=== PATIENT | female | born 1960 | race African-American/Black ===

== ENCOUNTER 2023-03-06 12:12 | Inpatient (IN) | payer OTHER ==
[~2023-03-06] VITALS: Ht 165.1 cm; Wt 57.7 kg
[~2023-03-06 12:12] MED LIST: ALBUTEROL0.83 MG/ML IH; CALCITRIOL PO; LOPID 600M600 MG/TAB PO; NORVASC 5MG5 MG/TAB PO; SODIUM BICARBO650 MG PO; TENORMIN 5050 MG/TAB PO; TESSALON P100 MG/CAP PO; ZYLOPRIM 300MG300 MG PO
[2023-03-06] MEDS ORDERED: TOPROL XL100 MG PO (12:46)
[2023-03-06] MEDS ORDERED: KEPPRA 500MG500 MG PO (12:46)
[2023-03-06] MEDS ORDERED: LASIX 40MG TABL40 MG PO (12:46)
[2023-03-06] MEDS ORDERED: MIRALAX PA17 GM/Dose PO (12:47)
[2023-03-06] MEDS ORDERED: PROTONIX 40MG T40 MG PO (12:47)
[2023-03-06] MEDS ORDERED: SENNA-LAX8.6 MG PO (12:48)
[2023-03-06] MEDS ORDERED: ANORO IH (12:49)
--- NOTE | 2023-03-06 12:59 | NUR ---
New patient arrived to unit from [facility]. She was admitted there for concern for seizure activity. Pt is a/o x4, pleasant. Pt is weak in all extremities but is able to bear weight and pivot transfer w/ CGA w/ person assistance. Swelling to right wrist noted with tenderness. Dr. Bolden notified and was in room to examine pt. Moisture related skin breakdown noted to perineum - pt reports this area is painful. Waffle overlay present on mattress. Air cushion placed into recliner. Pressure dressing noted to RUE - pt reports that an IV was removed from this site today and that it "gushed blood". Will assess this site later in shift. Overall skin is dry and flaky. Orientation provided to unit.
[2023-03-06 13:13] VITALS: BP 133/84; PULSE 77; TEMP 98.4
[2023-03-06 13:18] VITALS: BP_SYST 133
[2023-03-06 17:09] VITALS: BP 150/92; PULSE 90; TEMP 98
[2023-03-06 17:41] VITALS: BP_SYST 150
--- NOTE | 2023-03-06 20:20 | NUR ---
PT HAVING SEVERE ABD PAIN/CRAMPING. PT RELATED DOESNT REMEBER LAST BM. DENIES IT WAS YESTERDAY PER REPORT. GAVE SENOKOT, COLACE AND DULCOLAX SUPP.
--- NOTE | 2023-03-06 21:30 | NUR ---
ASSISTED PT TO BSC. HAD HARD SMALL STOOL. PT C/O SEVERE ABD CRAMPING. MOANING. BACK TO BED. WARM PAD TO ABD. ABD REMAINS SOFT BS PRESENT.
--- NOTE | 2023-03-06 22:34 | NUR ---
NOTIFIED ANALY CROWE OF PT C/O OF UNRELIEVED SEVERE ABD CRAMPING. SEE NEW ORDERS.
--- NOTE | 2023-03-06 23:30 | NUR ---
RADIOLOGY HERE FOR KUB. GAVE ENRIQUETA EARLIER. SEE MAR.
[2023-03-07 00:09] VITALS: BP 135/79; PULSE 96; TEMP 98.5
--- NOTE | 2023-03-07 00:28 | NUR ---
PT HAS SETTLED SOME. NOT MOANING. DOZING.
--- NOTE | 2023-03-07 01:17 | NUR ---
PT AWAKE. STILL HAVING ABD CRAMPING. GAVE 2 MYLICON CHEWABLES.
[2023-03-07 05:53] VITALS: BP 141/81; PULSE 96; TEMP 98.9
[2023-03-07 07:00] VITALS: BP_SYST 141
[2023-03-07 07:39] LABS: BASO % 0.3 % (0.0-2.0); EOS % 0.6 % (0.0-4.0); GRAN # 5.2 K/mm3 (1.4-6.5); GRAN % 79.4 % (42.2-75.2); LYMPH # 0.9 K/mm3 (1.2-3.4); LYMPH % 14.2 % (20.0-51.0); MEAN CELL VOLUME 87 fl (80.0-100.0); MEAN CORPUSCULAR HGB CONC 32 g/dl (33.0-37.0); MEAN PLATELET VOLUME 11.8 fl (7.4-10.4); MONO # 0.3 K/mm3 (0.1-0.6); MONO % 4.7 % (1.7-9.3); PLATELET COUNT 149 K/mm3 (130-400); RED BLOOD COUNT 3.11 M/mm3 (4.10-5.30); REDCELL DISTRIBUTION WIDTH-CV 18.9 % (11.5-14.5)
[2023-03-07 07:54] LABS: CALCIUM 7.7 mg/dL (8.4-10.2); CREATININE, serum 4.13 mg/dL (0.57-1.11); POTASSIUM 4.9 mmol/L (3.5-4.5); URIC ACID 9.3 mg/dL (2.6-6.0)
[2023-03-07 07:55] LABS: HEMATOCRIT 27.1 % (37.0-47.0); HEMOGLOBIN 8.6 g/dl (12.5-16.0); MEAN CORPUSCULAR HEMOGLOBIN 28 pg (27-31)
--- NOTE | 2023-03-07 09:50 | NUR ---
PATIENT ALERT AND ORIENTED X4. VSS. PATIENT HERE FOR DEBILITY. PATIENT REPORTS ABDOMINAL PAIN, RATING 5/10. PATIENT HAS HAD 2 LOOSE LARGE STOOLS THIS AM. DESITIN APPLIED TO COCCYX/SHANTEL AREA. SEE ASSESSMENT FOR SKIN ISSUES. PATIENT DENIES ANY FURTHER NEEDS. PATIENT IN CHAIR, WAITING ON THERAPY THIS AM. CALL LIGHT IN REACH, CHAIR ALARM ACTIVATED.
[2023-03-07 15:09] LABS: RETIC # 0.09 M/mm3 (0.02-0.16); RETIC % 2.9 % (0.5-3.52)
--- NOTE | 2023-03-07 15:31 | NUR ---
SW met with patient to complete intake. Patient reports that she lives at home with her brother Gus and her son Praveen. The home is a two story home with a basement located in [place]. Patient reports that there are a total of three steps to get into the home with no handrail. She utilizes the gutters that run down the side of the home as "handrails". At baseline she uses a FWW to assist with mobility but verbalizes that she would like to obtain a rollator walker with a seat. Patient states that she is independent with her ADL's and IADL's with the exception of her laundry. Laundry room is located in the basement with a full flight of steps, that she voices she doesn't feel safe going down. Her brother will assist in washing her clothing but she is able to fold it. Her bathroom is a tub/shower combo with grab bars installed and she denies having a shower bench. Toilet is standard height and she denies having a toilet riser. Denies any dentures,hearing aids or glasses. Denies any current tobacco, alcohol or drug use. Patient reports that she is no longer going to [facility] for PCP care and only utilizes for her care. [facility]. She owns her own car, but was told not to drive due to her seizures. Her main support is her brother Gus as her children are "unreliable". Patient does not have a DPOA- established and does not wish to create one at this time.
[2023-03-07 17:37] VITALS: BP 145/80; PULSE 78; TEMP 99.3
[2023-03-07 19:18] LABS: COLLECTION METHOD CLEAN CATCH
--- NOTE | 2023-03-07 19:20 | NUR ---
RECEIVED CHANGE OF SHIFT REPORT FROM DAY SHIFT RN. PATIENT RESTING IN BED DURING REPORT, CALL LIGHT IN PLACE, EXIT ALARM ON. CASANOVA CATH TO DD DRAINING WITH DD BAG ON ICE FOR 24 HOUR URINE COLLECTION.
[2023-03-07 19:37] LABS: PH 7.5 (5.0-8.5); URINE APPEARANCE Cloudy (CLEAR/HAZY); URINE COLOR Yellow (YELLOW)
[2023-03-07 19:38] LABS: URINE BLOOD TRACE-INTACT (NEGATIVE); URINE GLUCOSE Negative (NEGATIVE); URINE KETONE 1+ (NEGATIVE); URINE NITRATE Negative (NEGATIVE); URINE PROTEIN(semi-quant) 2+ (NEGATIVE); URINE UROBILINOGEN 0.2 E.U/dL (0.2-1.0)
[2023-03-07 19:39] LABS: MUCOUS Present (NOT PRESENT); SQUAMOUS EPITHELIAL 0-2 /hpf (0-10); URINE BACTERIA Rare /hpf (NONE SEEN)
[2023-03-07 22:19] VITALS: BP 143/73; PULSE 91; TEMP 98.7
--- NOTE | 2023-03-07 22:19 | NUR ---
REPORTS DIZZINESS, VS TAKEN, DENIED CHEST PAIN/NAUSEA/SOA/CHILLING. FSBS TAKEN, RESULTED IN 78. PATIENT AGREED TO EAT KAYLIN ICE CREAM FOR SNACK AT THIS TIME.
--- NOTE | 2023-03-07 23:25 | NUR ---
REPORTS DIZZINESS HAS SUBSIDED. STILL HAVING LOOSE STOOLS, WITH COMPLAINTS OF STOMACH CRAMPING AT TIME.
[2023-03-08 05:26] VITALS: BP 145/77; PULSE 94; TEMP 98.1
--- NOTE | 2023-03-08 05:41 | NUR ---
REPORTS SHE "FEELS BETTER THAT BEFORE". CASANOVA TO DD CONTINUES, 24 HOUR URINE COLLECTION CONTINUES WITH CASANOVA DD BAG ON ICE CONTINOUSLY THROUGH THE NIGHT.
[2023-03-08 07:00] VITALS: BP_SYST 145
--- NOTE | 2023-03-08 07:27 | NUR ---
CHANGE OF SHIFT REPORT GIVEN TO DAY SHIFT RNCONI.
--- NOTE | 2023-03-08 08:53 | NUR ---
Shift report received from the night nurseZakia RN.
--- NOTE | 2023-03-08 10:00 | NUR ---
Has lack of transportation kept you from medical appts, meetings, work, or from getting things needed for daily living? NO How often do you feel lonely or isolated from those around you? NEVER Over the past 5 days, how much of the time has pain made it hard for you to sleep? FREQUENTLY Over the past 5 days, how often have you limited your participation in therapy due to pain? OCCASIONALLY Over the past 5 days, how often have you limited your day-to-day activities because of pain? OCCASIONALLY Have you had 2 or more falls in the past year or any fall with an injury? YES Did you have major surgery during the 100 days prior to admission? NO
--- NOTE | 2023-03-08 10:53 | NUR ---
Patient laying in bed alert and oriented. Patient states she feeling good this am and had a large bowel movement. Patient denies of abdominal cramps. INT on right wrist intact. Patient remains on 2L fluid restrictions.
--- NOTE | 2023-03-08 11:30 | NUR ---
Received lab report for patient's blood glucose of 70 after physical therapy section this am. Patient asymptomatic, grape juice offered and lunch. Rechecked patient blood sugar with a reading of 127. No needs at this time .
[2023-03-08 11:34] LABS: CALCIUM 7.4 mg/dL (8.4-10.2); CREATININE, serum 4.14 mg/dL (0.57-1.11); POTASSIUM 4.4 mmol/L (3.5-4.5)
[2023-03-08 12:13] LABS: BASO % 0.4 % (0.0-2.0); EOS # 0.1 K/mm3 (0.0-0.7); EOS % 0.9 % (0.0-4.0); GRAN # 5.9 K/mm3 (1.4-6.5); GRAN % 78.3 % (42.2-75.2); LYMPH # 1.1 K/mm3 (1.2-3.4); LYMPH % 14.8 % (20.0-51.0); MEAN CELL VOLUME 85 fl (80.0-100.0); MEAN CORPUSCULAR HGB CONC 33 g/dl (33.0-37.0); MONO # 0.4 K/mm3 (0.1-0.6); MONO % 4.8 % (1.7-9.3); PLATELET COUNT 134 K/mm3 (130-400)
[2023-03-08 12:14] LABS: HEMOGLOBIN 9.5 g/dl (12.5-16.0); MEAN CORPUSCULAR HEMOGLOBIN 28 pg (27-31)
[2023-03-08 16:52] VITALS: BP 124/72; PULSE 91; TEMP 98.4
--- NOTE | 2023-03-08 19:00 | NUR ---
RECEIVED CHANGE OF SHIFT REPORT FROM DAY SHIFT RN.
--- NOTE | 2023-03-08 19:03 | NUR ---
24 hours urine collection completed and sent to lab.
[2023-03-08 19:21] LABS: CREATININE, serum 4.08 mg/dL (0.57-1.11)
[2023-03-09 05:37] VITALS: BP 153/86; PULSE 97; TEMP 98.4
[2023-03-09 07:14] VITALS: BP_SYST 153
--- NOTE | 2023-03-09 07:23 | NUR ---
CHANGE OF SHIFT REPORT GIVEN TO DAY SHIFT DREW IRWIN.
--- NOTE | 2023-03-09 14:05 | NUR ---
Admission QIM scores were reviewed by the team. Code of 2 chosen for toilet hygiene was determined by team discussion to be the most usual performance before interventions for this patient during the assessment period. Code of 2 chosen for toilet transfer was determined by team discussion to be the most usual performance before interventions for this patient during the assessment period. Code of 3 chosen for putting on/taking off footwear was determined by team discussion to be the most usual performance before interventions for this patient during the assessment period. Code of 4 chosen for rolling left to right was determined by team discussion to be the most usual performance before interventions for this patient during the assessment period. Code of 4 chosen for sit to lying was determined by team discussion to be the most usual performance before interventions for this patient during the assessment period. Code of 3 chosen for lying to sitting on side of bed was determined by team discussion to be the most usual performance before interventions for this patient during the assessment period. Code of 2 chosen for sit to stand was determined by team discussion to be the most usual performance for this patient during the discharge assessment period. Code of 2 chosen for chair/bed to chair transfer was determined by team discussion to be the most usual performance before interventions for this patient during the assessment period. Code of 3 chosen for walk 50 feet w/ 2 turns was determined by team discussion to be the most usual performance before interventions for this patient during the assessment period. Code of 88 chosen for walk 10 feet on uneven surface was determined by team discussion to be the most usual performance for this patient during the discharge assessment period.--Barb Graham,
--- NOTE | 2023-03-09 16:38 | NUR ---
Engagement Lead met with Patient at bedside to follow-up on treatment progress. Patient reports to be confused, stating that she was not confused until this day. Patient reports to be oriented to person, place, and time without being prompted. Patient states that she does not know what she is confused about. When discussing the potential to feel overwhelmed, Patient reports to be overwhelmed and continues to repeat that she is confused. SW notified IPR nurse of Patient reported confusion.
[2023-03-09 17:23] VITALS: BP 147/90; PULSE 93; TEMP 98.8
[2023-03-09 18:30] VITALS: BP_SYST 147
--- NOTE | 2023-03-09 18:48 | NUR ---
patient complaining of swollen lips and being itchy. regional construction manager nights called. waiting for orders to be put in.
--- NOTE | 2023-03-09 21:00 | NUR ---
PT RESTING IN BED. HOB ELEVATED. HAS KPAD ACROSS ABD. DENIES STOMACH PROBLEMS TONIGHT. GAVE ONE TIME DOSE PEPCID 20MG ORDERED. GAVE BENADRYL 25MG PO FOR ITCHING. NOT SURE IF MED REACTION. HAS OCCASIONAL LOOSE COUGH W/O SPUTUM. TAKES MUCOUS RELIEF. TYLENOL GIVEN FOR GENERALIZED ACHES. CALL LIGHT IN REACH. BED ALARM SET.
--- NOTE | 2023-03-09 21:05 | NUR ---
CONTINUED SEIZURE PRECATIONS.
[2023-03-10 05:20] VITALS: BP 141/90; PULSE 86; TEMP 97.9
[2023-03-10 07:13] VITALS: BP_SYST 141
--- NOTE | 2023-03-10 07:13 | NUR ---
Shift report received from retail shift leader RN.
--- NOTE | 2023-03-10 10:39 | NUR ---
Initial visit; Patient thanked for looking in on her. Preschool Disability Teacher explained that every time she has attempted to visit there were people with her. Today, finally she was available. This brought a smile and a thank you for prayer and encouragement. will continue to visit Bev who is glad to be back from [place], closer to home.
--- NOTE | 2023-03-10 10:56 | NUR ---
Pt was agreeable to attending Group Therapy this morning and then changed her mind. Pt currently resting in left side lying position in bed. Pt is tearful and states that she is "upset that the therapy girl game 20 minutes late" and "asked if I planned on going to Group". Pt stated this was upsetting because she is unable to take herself to Group Therapy. Pt wondered if this was becausea of her race. Pt was assured that everyone is welcome to attend Group Therapy and that the therapist may have just been running late for a different reason. Pt stating that she "just wants to go home".
--- NOTE | 2023-03-10 15:27 | NUR ---
Pt sitting up in bed visiting with her brother. Pt noted to be short of breath while speaking. SpO2 97% RA. Pt denies shortness of breath, chest pain or tightness, difficulty breathing. SBA provided as pt ambulated to the bathroom w/ FWW and then back to bed. Pt denies other needs. Call light is in her reach. Bed alarm is on.
[2023-03-10 17:27] VITALS: BP 158/102; PULSE 94; TEMP 98.4
[2023-03-10 18:16] VITALS: BP 148/98; PULSE 88
[2023-03-10 19:00] VITALS: BP_SYST 146
[2023-03-10 19:20] VITALS: BP 146/98; PULSE 95
--- NOTE | 2023-03-10 19:24 | NUR ---
NOTIFIED ANALY BECK OF ELEVATED BP'S. WILL CONTINUE TO MONITOR.
--- NOTE | 2023-03-10 20:00 | NUR ---
PT RESTING IN BED. ALITTLE DEPRESSED. PROVIDED EMOTIONAL SUPPORT. RECHECK B/P EARLIER 146/98. H/A IMPROVED. PT REPORTS JUST HAD A BAD DAY. TRYING TO SETTLE HERSELF DOWN. SEE SKIN ASSESSMENT AND CARES GIVEN. MELATONIN GIVEN. CALL LIGHT IN REACH. BED ALARM SET.
[2023-03-11 05:23] VITALS: BP 153/93; PULSE 93; TEMP 97.5
[2023-03-11 06:55] VITALS: BP_SYST 153
--- NOTE | 2023-03-11 06:56 | NUR ---
Shift report received from night shift manager RN. SBA provided as pt stood from bed and ambulated to bathroom w/ FWW. SBA for clothing mgmt and hygiene and ambulation back to bed. SBA provided for pt to position from sitting to lying in bed. She denies pain/discomfort. Denies chest pain, abd. pain, shortness of breath or other needs. Call light in reach. Bed alarm on.
[2023-03-11 07:19] VITALS: BP 151/95
--- NOTE | 2023-03-11 07:23 | NUR ---
Pt reporting a headache at 7/10 on pain scale. Abd pain w/o nausea also reported. Tylenol and Simethicone given per PRN order. Pt denies visual changes. No slurred speech. Headache is felt over frontal area. BP 151/95. Will continue to monitor.
--- NOTE | 2023-03-11 10:28 | NUR ---
Pt sleeping supine. Head Loader is at the bedside. Call light is in her reach. Be alarm is on.
--- NOTE | 2023-03-11 11:14 | NUR ---
SBA provided as pt stood from bed and ambulated to the bathroom using a FWW. She reports her stomach upset and headache have resolved. Pt back in bed to continue resting. She denies general pain/discomfort. Denies nausea or other needs. Call light is in her reach. Bed alarm is on.
--- NOTE | 2023-03-11 12:14 | NUR ---
Pt resting in bed after eating lunch. Pt ate >50% of her lunch independently. She continues to report that her headache and upset stomach have resolved. She denies other needs. Call light is in her reach. Bed alarm is on.
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
--- NOTE | 2023-03-11 12:40 | NUR ---
Pt reporting that her stomach is feeling upset again. SBA provided as pt ambulated to the bathroom with a FWW. Pt had a large, loose stool. No nausea. No GUY. Will continue to monitor. Call light is in her reach. Bed alarm is on.
[2023-03-11 18:13] VITALS: BP 160/98; PULSE 100; TEMP 98.4
[2023-03-11 18:20] VITALS: BP 144/98; PULSE 98
[2023-03-11 18:30] VITALS: BP_SYST 144
--- NOTE | 2023-03-11 21:00 | NUR ---
PT RESTING IN BED. NO DISTRESS AT THIS TIME. STILL FEELS GASSY BUT NO PAIN OR NAUSEA. SEE MAR FOR MYLICON GIVEN. TYLENOL GIVEN FOR GEN ACHINESS. DC'D INT TO RT F/A. CALL LIGHT IN REACH. BED ALARM SET.
[2023-03-12 05:19] VITALS: BP 147/92; PULSE 97; TEMP 97.7
[2023-03-12 07:00] VITALS: BP_SYST 147
[2023-03-12 07:25] LABS: BASO % 0.1 % (0.0-2.0); EOS % 0.1 % (0.0-4.0); GRAN # 5.8 K/mm3 (1.4-6.5); GRAN % 68.9 % (42.2-75.2); LYMPH % 23.6 % (20.0-51.0); MEAN CELL VOLUME 88 fl (80.0-100.0); MEAN CORPUSCULAR HGB CONC 31 g/dl (33.0-37.0); MEAN PLATELET VOLUME 13.2 fl (7.4-10.4); MONO # 0.5 K/mm3 (0.1-0.6); PLATELET COUNT 163 K/mm3 (130-400); RED BLOOD COUNT 3.11 M/mm3 (4.10-5.30); REDCELL DISTRIBUTION WIDTH-CV 19.7 % (11.5-14.5)
[2023-03-12 07:34] LABS: HEMATOCRIT 27.2 % (37.0-47.0); HEMOGLOBIN 8.5 g/dl (12.5-16.0); MEAN CORPUSCULAR HEMOGLOBIN 27 pg (27-31)
[2023-03-12 07:38] LABS: CALCIUM 8.7 mg/dL (8.4-10.2); CREATININE, serum 4.49 mg/dL (0.57-1.11); MAGNESIUM 1.7 mg/dL (1.6-2.6); PHOSPHOROUS 5.6 mg/dL (2.3-4.7); POTASSIUM 4.3 mmol/L (3.5-4.5)
--- NOTE | 2023-03-12 12:22 | NUR ---
NEPHROLOGY AT BEDSIDE, SEE NOTES
--- NOTE | 2023-03-12 15:14 | NUR ---
SW met with the patient to follow up and introduce oneself. The patient was resting and states that she had just been napping. She shares that she is hopeful to go home soon. The IPR Team would like to set up a patient/family meeting. SW discussed this with the patient. The patient reports that she does not want her children involved or called. She states that it has been her brother, Gus (ph#[phone], that has been helping her and coming up to visit her. She asks that SW contact her brother about the meeting. She had no other questions or concerns for SW. SW attempted to contact the patient's brother, Gus. SW left him a voicemail.
[2023-03-12 15:32] VITALS: BP 148/93; PULSE 86; TEMP 97.6
[2023-03-12 17:11] VITALS: BP 135/71; PULSE 50; TEMP 98.5
--- NOTE | 2023-03-12 18:50 | NUR ---
RECEIVED CHANGE OF SHIFT REPORT FROM DAY SHIFT RN.
[2023-03-12 20:48] VITALS: BP 144/90; PULSE 84; TEMP 97.5
--- NOTE | 2023-03-12 21:30 | NUR ---
PATIENT COMPLAINING OF GENERALIZED ITCHING, PATIENT AGITATED. PATIENT STATES HAS HAD PREDNISONE BEFORE AND HAS C/O ITCHING FROM TAKING PREDNISONE. INFORMED ONCALL PROVIDER OF PATIENT COMPAINTS, PROVIDER TO ENTER ORDERS FOR BENADRYL PO.
[2023-03-12 23:17] VITALS: BP 148/95; PULSE 86; TEMP 97.6
--- NOTE | 2023-03-12 23:39 | NUR ---
HAD COMPLAINED "I CAN'T BREATHE" X2, OXYGEN SAT CHECKED BOTH TIMES AT 100% AND 97% WITH CLEAR LUNG SOUNDS TO AUSCULTATED THROUGHOUT LUNG HILARIO. DENIES ANY OTHER NEEDS AT THIS TIME. SKIN WARM/DRY. SPEAKS CLEARLY AND APPROPRIATELY.
[2023-03-13] VITALS (8 sets, daily range): BP systolic 140–154; BP diastolic 87–96; PULSE 72–88; TEMP 97.2–98
--- NOTE | 2023-03-13 00:48 | NUR ---
OBSERVED PATIENT TALKING IN HER SLEEP WHEN MAKING NURSING ROUNDS, DID NOT WAKE WHEN NURSING ENTERED ROOM, OBSERVED RESPIRATORY EFFORT EVEN AND NONLABORED, OXYGEN CONTINUES AT 1LPM/NC AT THIS TIME.
--- NOTE | 2023-03-13 01:00 | NUR ---
PATIENT SLEEPING, DOES NOT WAKE WHEN ROOM ENTERED BY NURSING STAFF ON ROUNDS. BREATHING NONLABORED AND EVEN. OXYGEN CONTINUES PER NC AT 2LPM FOR COMFORT.
--- NOTE | 2023-03-13 01:08 | NUR ---
PATIENT STATED SHE NEEDS HELP, STATING SHE STILL WAS SHORT OF AIR, OXYGEN STILL AT 1LPM/NC, REPOSITIONED UP IN BED PER PATIENT REQUEST WITH PATIENT STATING SOA WAS BETTER, THEN STATED "I HAVE A HEADACHE NOW". SEE VS TAKEN IN [facility] AND SEE MAR FOR TYLENOL GIVEN. DENIED ANY OTHER NEEDS AT THIS TIME.
--- NOTE | 2023-03-13 04:02 | NUR ---
PATIENT CONTINUES TO SLEEPING, NOT WAKING WHEN ROOM ENTERED BY STAFF ON ROUNDS. BREATHING NONLABORED AND EVEN WITH OXYGEN CONTINUING PER NC.
--- NOTE | 2023-03-13 05:08 | NUR ---
INFORMED OF DBP AT >95 FOR THE LAST FEW VS TAKEN. NO NEW ORDERS GIVEN OR ENTERED AT THIS TIME. PATIENT DENIES ANY COMPLAINTS OR NEEDS CURRRENTLY.
--- NOTE | 2023-03-13 06:40 | NUR ---
CHANGE OF SHIFT REPORT GIVEN TO DAY SHIFT RNSUKHDEV.
--- NOTE | 2023-03-13 07:00 | NUR ---
PATIENT C/O FEELING SOA. O2 SATS OF 98% ON 2L PER NC. CALL CENTER REPRESENTATIVE REPORTED PATIENT C/O FEELING SOA BUT O2 SATS WERE GREATER THAN 94%. NOTED CLEAR A&P UPPER LOBES WITH DEMINISHED BASES. NO COUGH. PROVIDER NOTIFIED. SEE ORDERS FOR CXR.
--- NOTE | 2023-03-13 18:45 | NUR ---
RECEIVED CHANGE OF SHIFT REPORT FROM DAY SHIFT RN. PATIENT RESTING IN BED WITH CALL LIGHT IN REACH.
--- NOTE | 2023-03-13 22:00 | NUR ---
PATIENT INFORMED THAT SALINE LOCK TO BE PLACED DUE TO CONTINUED TELE, PATIENT REFUSED TO HAVE SALINE LOCK PLACED AT THIS TIME, AGREED TO HAVE SALINE LOCK PUT IN EARLY IN THE MORNING.
--- NOTE | 2023-03-13 23:12 | NUR ---
PATIENT C/O SOA, OXYGEN SAT CHECKED AT 95% ON ROOM AIR, OBSERVED PATIENT LAYING LOWER HALF OF BED WITH HOB UP. PATIENT PULLED UP IN BED, X2 ASST, WITH PATIENT REPORTING ABLE TO BREATH MORE COMFORTABLE. DENIED ANY OTHER NEEDS AT THIS TIME.
[2023-03-14] VITALS (7 sets, daily range): BP systolic 148–165; BP diastolic 88–98; PULSE 82–91; TEMP 98.6–99
--- NOTE | 2023-03-14 03:20 | NUR ---
Complained of headache due to lack of sleep despite having taken Melatonin. See MAR for Tylenol given, and see [employer] for VS taken.
--- NOTE | 2023-03-14 06:51 | NUR ---
Shift report received from shift boss RN. Pt sleeping supine. Call light in reach. Bed alarm on.
--- NOTE | 2023-03-14 06:58 | NUR ---
Change of shift report given to day shift RNBoy.
--- NOTE | 2023-03-14 16:04 | NUR ---
CAROLYN met with the patient to present and review the IPR Team Conference Note. The team has set a discharge for next Sunday, 03/20, with home health PT/OT/ST. The patient is in agreement to the plan. CAROLYN provided her with Medicare.[employer] list of home health agencies that serve [place]. The patient informed CAROLYN that she does not have a preference and to get her set up with anyone. The patient has [employer] for insurance. CAROLYN will need to find home health agency on the list that accepts her insurance and has the above disciplines. CAROLYN also inquired about the patient/family meeting. The patient states that her brother, Gus, drives a bus during the day and is unreachable. She states that SW can contact her nephew, QUINCY (ph#[phone]), to update and see if available for the family meeting. CAROLYN contacted TG and updated him on the above. He is supportive of the plan. He states that he can be available by phone tomorrow for the meeting at 0915. CAROLYN updated IPR Director. CAROLYN contacted Windy at [facility] to inquire if they take the patient's insurance. Windy states that they do not.
--- NOTE | 2023-03-14 19:14 | NUR ---
RECEIVED CHANGE OF SHIFT REPORT FROM DAY SHIFT RN.
--- NOTE | 2023-03-15 00:20 | NUR ---
PATIENT COMPLAINING OF SCD BEING "TOO TIGHT" AND PATIENT VOICING DISCOMFORT. SCD TAKEN OFF AT THIS TIME. PATIENT ALSO C/O "I FEEL LIKE I'M GOING TO THROW UP" SEE MAR FOR MED GIVEN FOR STOMACH C/O.
[2023-03-15 05:25] VITALS: BP 145/81; PULSE 98; TEMP 98.1
--- NOTE | 2023-03-15 06:07 | NUR ---
REPORTS "OH MY STOMACH IS GOING CRAZY" REPORTING THAT SHE HAD 2 MORE BMs. REQUEST MED "FOR MY STOMACH" SEE MAR FOR MED GIVEN. DENIED ANY OTHER NEEDS AT THIS TIME.
--- NOTE | 2023-03-15 06:45 | NUR ---
shift report received from DC Mccall
--- NOTE | 2023-03-15 07:04 | NUR ---
CHANGE OF SHIFT REPORT GIVEN TO DAY SHIFT BARTOLO IRWIN.
[2023-03-15 07:07] VITALS: BP_SYST 145
[2023-03-15 07:44] LABS: ALBUMIN 2.7 gm/dL (3.4-4.8); BILIRUBIN,TOTAL 0.7 mg/dL (0.2-1.2); CALCIUM 8.8 mg/dL (8.4-10.2); CREATININE, serum 5.1 mg/dL (0.57-1.11); POTASSIUM 4.5 mmol/L (3.5-4.5); TOTAL PROTEIN 6.7 gm/dL (6.2-8.1)
--- NOTE | 2023-03-15 08:00 | NUR ---
occupational therapy in to work with patient
[2023-03-15 08:13] LABS: MEAN CELL VOLUME 90 fl (80.0-100.0); MEAN CORPUSCULAR HGB CONC 31 g/dl (33.0-37.0); MEAN PLATELET VOLUME 12.2 fl (7.4-10.4); PLATELET COUNT 127 K/mm3 (130-400); RED BLOOD COUNT 3.33 M/mm3 (4.10-5.30); REDCELL DISTRIBUTION WIDTH-CV 20.9 % (11.5-14.5)
[2023-03-15 08:19] LABS: HEMATOCRIT 29.8 % (37.0-47.0); HEMOGLOBIN 9.3 g/dl (12.5-16.0); MEAN CORPUSCULAR HEMOGLOBIN 28 pg (27-31)
[2023-03-15 08:31] LABS: ANISOCYTOSIS 2+; BAND 9 % (0-10); HYPOCHROMIA 1+; LYMPHOCYTE 20 % (20.0-51.0); NEUTROPHILS 68 % (42.0-75.2); NUCLEATED RED BLOOD CELL 4 (0-6); PLATELET ESTIMATE DECREASED (NORMAL)
[2023-03-15 08:32] LABS: OVALOCYTES 1+
--- NOTE | 2023-03-15 09:45 | NUR ---
speech therapy in working with patient
--- NOTE | 2023-03-15 10:20 | NUR ---
resting in bed, full assessment completed, see interventions for further info
--- NOTE | 2023-03-15 10:27 | NUR ---
Dr Shelton in to see patient
--- NOTE | 2023-03-15 11:04 | NUR ---
CAROLYN attended the patient/family meeting. The patient's nephew, TG, was on speaker phone. Also present was Dr. Bolden, IPR Director, PT, OT, and ST. IPR Director started by explaining the purpose of the meeting. Dr. Bolden then provided a medical update. PT/OT/ST then discussed the patient's progress so far and it was reiterated how plan is for a discharge next Sunday, if medically cleared, with home health PT/OT/ST. The patient and her nephew are in agreement to the plan. The patient shares how she is ready to get back home. All questions answered. This SW has tried to establish home health with the insurance [employer] in the past. [facility] was the only agency on the list that contracted with this insurance. CAROLYN contacted Alyce at [facility] to inquire if they still take the insurance. Alyce states that they do and that they do have ST available. CAROLYN faxed [facility] a referral. Awaiting screen.
--- NOTE | 2023-03-15 12:17 | NUR ---
incontinent of urine and small BM, care provided,
--- NOTE | 2023-03-15 13:01 | NUR ---
physical therapy in to work with patient
--- NOTE | 2023-03-15 15:30 | NUR ---
resting in bed, INT started and venofer infusion started
--- NOTE | 2023-03-15 15:54 | NUR ---
repositioned in bed for comfort, denies pain or other needs
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
[2023-03-15 17:10] VITALS: BP 147/96; PULSE 78; TEMP 97.4
--- NOTE | 2023-03-15 17:47 | NUR ---
Akhil IRWIN in and attempting to start INT
--- NOTE | 2023-03-15 17:58 | NUR ---
Akhil IRWIN was unsuccessful starting INT, DC Cisneros now in to attempt
[2023-03-15 18:30] VITALS: BP_SYST 147
--- NOTE | 2023-03-15 20:00 | NUR ---
PT VISITING WITH FAMILY. CHEERFUL. IV IRON INFUSION COMPLETED. INT TO RT WRIST W/O REDNESS OR SWELLING. PRESSURE DRSG TO LT WRIST AREA INTACT. HAS HACKY NON PRODUCTIVE COUGH. HAD LOOSE INCONT BLACK STOOL. CALL IGHT IN REACH. BED ALARM SET.
--- NOTE | 2023-03-16 02:05 | NUR ---
PT IN ROOM TALKING TO HERSELF. DENIES ANY NEEDS. CALL LIGHT IN REACH.
--- NOTE | 2023-03-16 02:48 | NUR ---
PT TRYING TO GET UP BY HERSELF. ASSISTED TO STANDING POSITION WITH WALKER TO BR. LEGS TOO WEAK. SAT BACK DOWN ON BED. THEN TRANSFERRED TO BSC. HAD SMALL LOOSE BLACK STOOL WITH VOID. NEEDED MAX ASSIST WITH HYGIENE. ASSISTEXD BACK TO BED. NEEDED MOD ASSIST TO STANDING FROM BSC AND PIVOT TRANSFER TO BED. PT ABLE TO GET LEGS UP INTO BED PER SELF. WANTS SCD'S OFF. KEEPS KPAD TO ABD. CALL LIGHT IN REACH. BED ALARM SET.
[2023-03-16 05:55] VITALS: BP 147/90; PULSE 87; TEMP 98.2
[2023-03-16 06:54] VITALS: BP_SYST 147
--- NOTE | 2023-03-16 06:55 | NUR ---
Shift report received from power and recovery shift engineer RN.
--- NOTE | 2023-03-16 13:04 | NUR ---
Pt has had several continent loose stools today. She is also noted to have loose stools yesterday also. Pt denies abd. pain, nausea. Hospitalist notified. Pt aware that stool spec is needed.
--- NOTE | 2023-03-16 15:17 | NUR ---
Alyce, at [facility], reports that they are able to accept the patient; but do not have OT at this time.
[2023-03-16 17:04] VITALS: BP 138/87; PULSE 77; TEMP 97.8
[2023-03-16 19:02] LABS: CLOSTRIDIUM DIFF A/B NEG
[2023-03-16 19:50] VITALS: BP_SYST 138
--- NOTE | 2023-03-16 19:54 | NUR ---
Patient assessed at this time. Alert and oriented, and able to make needs known. Reports level 5 pain to abdomen. Denies having nausea. Has Kpad to abdomen, and given PRN Acetaminophen. Denies wanting snack at this time. Voices no further questions, needs, or concerns at this time. In bed with call light within reach. Bed alarm on. C-diff negative, taken off of isolation.
--- NOTE | 2023-03-17 05:40 | NUR ---
Patient has had two episodes of loose stools this shift. Incontinent cares provided and desitin cream applied. Complained of abdominal pain. Received PRN Acetaminophen as well as Simethicon as requested. Kpad to abdomen. Voices no further questions, needs, or concerns at this time. In bed with call light within reach. High fall risk precautions in place. Bed alarm on.
[2023-03-17 05:47] VITALS: BP 146/79; PULSE 75; TEMP 98.5
[2023-03-17 07:00] VITALS: BP_SYST 146
--- NOTE | 2023-03-17 11:01 | NUR ---
Surgical Dressing Maker round: RN was with Patient; no Surgical Dressing Maker visit completed.
[2023-03-17 16:40] VITALS: BP 151/81; PULSE 85; TEMP 97.9
[2023-03-17 20:50] VITALS: BP_SYST 151
--- NOTE | 2023-03-18 05:15 | NUR ---
ASSESSMENT COMPLETE FOR SERVICE ARCHITECT. PT COMPLAINED SEVERAL TIMES ABOUT SLIDING DOWN IN BED. PT PULLED UP IN BED IT TIME. PT ALSO COMPLAINED OF INSOMNIA. PT GIVEN SCHEDULED MELATONIN. PT FELT THE MELATONIN WAS NOT EFFECTIVE FOR HER. PT OFFERED BENADRLY. PT SAID NO. PT DENIED GENERAL PAIN, CHEST PAIN, PALPITATIONS, SOB, N,V,D OR DIZZINESS. PT ALSO HAD SOME INCONTINENT THIS SHIFT. CALL LIGHT WITHIN REACH.
[2023-03-18 06:06] VITALS: BP 152/88; PULSE 84; TEMP 97.7
[2023-03-18 07:08] VITALS: BP_SYST 152
--- NOTE | 2023-03-18 08:14 | NUR ---
pt called out reporting chest pain. ekg obtained. dr mejía notified by charge nurse, will continue to monitor pt and her symptoms. no new orders.
--- NOTE | 2023-03-18 09:12 | NUR ---
pt resting in bed. meds given and assessment complete. pt reports feeling short of breath and has some chest pain. dr mejía in to assess pt. vss. pt did not sleep very well last night so wants to try and get some rest. call light in reach.
[2023-03-18 09:58] LABS: CALCIUM 8.4 mg/dL (8.4-10.2); CREATININE, serum 5.32 mg/dL (0.57-1.11)
[2023-03-18 10:12] LABS: TROPONIN-I 0.038 ng/mL (0.00-0.033)
--- NOTE | 2023-03-18 10:14 | NUR ---
notifed dr mejía of pts troponin of 0.038, will trend
--- NOTE | 2023-03-18 11:40 | NUR ---
dr nadine gudino for consult
--- NOTE | 2023-03-18 11:43 | NUR ---
dr mccoy called back w orders for echo and stress test tomorrow
[2023-03-18 17:15] VITALS: BP 145/92; PULSE 88; TEMP 98.2
--- NOTE | 2023-03-18 18:53 | NUR ---
RECEIVED CHANGE OF SHIFT REPORT FROM DAY SHIFT RN.
[2023-03-19] VITALS (13 sets, daily range): BP systolic 85–168; BP diastolic 41–98; PULSE 77–95; TEMP 97.6–98
--- NOTE | 2023-03-19 02:20 | NUR ---
PATIENT AGITATED AND YELLING "HELP" REPORTS SOA AND WANTING OXYGEN PLACE PER NC NOW. OBSERVED PATIENT WITH SOME WHEEZING AND RESP EFFORT RAPID/LABORED. VS TAKEN SEE [facility]. OXYGEN AT 100 PERCENT AT 2LPM, TURNED DOWN TO 1LPM CURRENTLY AFTER NOTING PATIENT NO LONGER BREATHING AND NO LONGER WHEEZING. DENIED CHEST PAIN WITH SOA COMPLAINT INITIALLY. PATIENT ALSO LAYING ASKEWED IN BED, PATIENT PULLED UP IN BED AND LAYING CORRECTLY IN BED AFTER REPOSITIONING. NO OTHER NEEDS REPORTED AT THIS TIME.
[2023-03-19 06:37] LABS: CALCIUM 8.3 mg/dL (8.4-10.2); CREATININE, serum 5.79 mg/dL (0.57-1.11); POTASSIUM 4.6 mmol/L (3.5-4.5)
--- NOTE | 2023-03-19 06:46 | NUR ---
CHANGE OF SHIFT REPORT GIVEN TO DAY SHIFT RNPIOTR.
[2023-03-19 06:47] LABS: MEAN CELL VOLUME 87 fl (80.0-100.0); MEAN CORPUSCULAR HGB CONC 34 g/dl (33.0-37.0); PLATELET COUNT 75 K/mm3 (130-400); RED BLOOD COUNT 2.85 M/mm3 (4.10-5.30); REDCELL DISTRIBUTION WIDTH-CV 21.7 % (11.5-14.5)
[2023-03-19 06:59] LABS: HEMATOCRIT 24.8 % (37.0-47.0); HEMOGLOBIN 8.3 g/dl (12.5-16.0); MEAN CORPUSCULAR HEMOGLOBIN 29 pg (27-31)
--- NOTE | 2023-03-19 07:01 | NUR ---
Shift report received from shift production associate RN. Lab called Charge nurse to report CO2 level of 13. Dr. Gutiérrez notified at 0700. Will administer her 0900 dose of Sodium bicarb now.
--- NOTE | 2023-03-19 07:29 | NUR ---
Shift report received from hourly shift RN. Pt awake and resting in bed. Denies pain. Reports having difficulty breathing and chest pain during the noc shift. Pt informed of Echo, stress test, and NPO status today. Pt v/u. Denies other needs. Call light is in her reach. Bed alarm on.
--- NOTE | 2023-03-19 08:18 | NUR ---
RAD at the bedside to perform Echo.
[2023-03-19 08:21] LABS: BAND 5 % (0-10); LYMPHOCYTE 18 % (20.0-51.0); NEUTROPHILS 68 % (42.0-75.2); NUCLEATED RED BLOOD CELL 3 (0-6)
[2023-03-19 08:22] LABS: ANISOCYTOSIS 3+; PLATELET ESTIMATE DECREASED (NORMAL); POLYCHROMASIA 1+; SCHISTOCYTES 2+
--- NOTE | 2023-03-19 11:40 | NUR ---
Pt reporting difficulty breathing. Resps are even and unlabored. SpO2 100% with O2 at 2L/nc. Occasional exp. wheezing heard. Pt denies chest pain, nausea, headache. RT notified.
--- NOTE | 2023-03-19 14:12 | NUR ---
CAROLYN met with the patient to follow up. She shares that she is not doing so great today. The patient had an echo this morning and is to have a stress test later today. Discharge tomorrow, will depend on cardio's workup.
--- NOTE | 2023-03-19 15:11 | NUR ---
Has lack of transportation kept you from medical appts, meetings, work, or from getting things needed for daily living? NO How often do you feel lonely or isolated from those around you? NEVER Over the past 5 days, how much of the time has pain made it hard for you to sleep? ALMOST CONSTANTLY Over the past 5 days, how often have you limited your participation in therapy due to pain? RARELY/NOT AT ALL Over the past 5 days, how often have you limited your day-to-day activities because of pain? RARELY/NOT AT ALL
--- NOTE | 2023-03-19 19:17 | NUR ---
RECEIVED CHANGE OF SHIFT REPORT FROM DAY SHIFT RN. PATIENT RESTING IN BED, EXIT ALARM ON, CALL LIGHT IN REACH. TELE IN PLACE WITH SALINE LOCK IN PLACE TO RW.
--- NOTE | 2023-03-19 23:06 | NUR ---
PATIENT SLEEPING, DID NOT WAKE WHEN STAFF ENTER ROOM ON NURSING ROUNDS. BREATHING EVEN AND NONLABORED. EXIT ALARM ON, CALL LIGHT IN REACH.
[2023-03-20] VITALS (16 sets, daily range): BP systolic 131–167; BP diastolic 63–110; PULSE 65–76; TEMP 97.3–98.4
--- NOTE | 2023-03-20 00:40 | NUR ---
MANUAL BP TAKEN OF 160/98 TO RUE AFTER DYNMAP BP READING OF 164/110. PATIENT AROUSES SOME WITH NAME CALLED, NO NEEDS REPORTED WHEN ASKED. EXIT ALARM ON, CALL LIGHT IN REACH.
--- NOTE | 2023-03-20 06:39 | NUR ---
CHANGE OF SHIFT REPORT GIVEN TO DAY SHIFT RNPIOTR.
--- NOTE | 2023-03-20 06:54 | NUR ---
Shift report received from night cleaner RN. Pt sleeping supine. Call light is in her reach. Bed alarm is on.
[2023-03-20] MEDS ORDERED: KEPPRA250 MG PO (11:12)
[2023-03-20] MEDS ORDERED: ANTI-DIARRHEAL2 MG PO (11:14)
[2023-03-20] MEDS ORDERED: ROCALTROL0.5 MCG PO (11:15)
[2023-03-20] MEDS ORDERED: ZYLOPRIM 100MG100 MG PO (11:15)
--- NOTE | 2023-03-20 12:01 | NUR ---
Pt has been drowsy throughout the shift today but states she feels ready for discharge. Pt is scheduled for PD cath placement this afternoon. Consent form has been signed and placed in chart. Son notified of the discharge plan for his mother today. Dr. Shelton/Tameka on unit to see pt. Pt having continued loose stools after Lexiscan yesterday afternoon. Stool spec for GI panel is still pending. OT currently in room to assist w/ shower.
--- NOTE | 2023-03-20 12:48 | NUR ---
Pt discharged from unit and is at OR. Son has been notified to cone picker pt belongings and DC summary.
--- NOTE | 2023-03-20 14:39 | NUR ---
The patient was to tentatively discharge today. CAROLYN met with the patient and reviewed the discharge plan. The patient reports she is ready to get home. CAROLYN presented and read the IM form outloud to her. The patient verbalized understanding and agreement to discharge today. She signed the form and CAROLYN provided her with a copy. CAROLYN updated the patient's nephew, TG. CAROLYN notified Faiza at [facility] . Barb, IPR Director, then notified CAROLYN that nephrology is wanting to place a fistula today. They will monitor the patient here for 1-2 days. Barb states she updated the patient's family. CAROLYN attempted to contact Faiza at [facility] to update. CAROLYN left him a voicemail.
--- NOTE | 2023-03-20 14:56 | NUR ---
Pt back to unit from OR/PACU. She is easily arousable from sleep. Gauze dressing over PD cath in LLQ is CDI. 2 lap sites present in RLQ approximated with skin glue. Pt currently on the phone talking to her son. Call light is in her reach. Bed alarm is on. Post op vital checks initiated.
--- NOTE | 2023-03-20 19:00 | NUR ---
RECEIVED CHANGE OF SHIFT REPORT FROM DAY SHIFT RN. PATIENT RESTING IN BED,AWAKENS TO NAME CALLED, SPEECH CLEAR. DENIES ANY NEEDS. BED EXIT ALARM ON, CALL LIGHT IN REACH. ON ROOM AIR. TELE IN PLACE. L NECK EXTERNAL JUGULAR IV IN PLACE AND SALINE LOCKED.
[2023-03-21] VITALS (9 sets, daily range): BP systolic 97–140; BP diastolic 54–83; PULSE 65–79; TEMP 97.4–98.4
--- NOTE | 2023-03-21 07:08 | NUR ---
CHANGE OF SHIFT REPORT GIVEN TO DAY SHIFT RNSUKHDEV.
--- NOTE | 2023-03-21 08:00 | NUR ---
PATIENT IS A&O AND SITTING UP IN CHAIR WITH BREAKFAST TRAY. PT AT BEDSIDE WORKING WITH PATIENT. NO COMPLAINTS AT THIS TIME. AM MEDS GIVEN. HEAD TO TOE ASSESSMENT COMPLETE.
--- NOTE | 2023-03-21 11:30 | NUR ---
HEPARIN GTT OFF PER HOSPITALIST, SEE ORDERS.
--- NOTE | 2023-03-21 14:33 | NUR ---
CAROLYN met with the patient and presented and reviewed the IPR Team Conference Note with her. The teams plans to discharge her on Sunday, 03/23, now with home health PT/ST/SN/OT. The patient is in agreement to the plan. CAROLYN notified Faiza at [facility] of the new discharge date. CAROLYN contacted and updated the patient's nephew, TG. He is supportive of the plan.
--- NOTE | 2023-03-21 22:00 | NUR ---
ORDERS PLACED FOR CENTRAL LINE CARE. NEW LT IJ ON 03/18.
[2023-03-22] VITALS (12 sets, daily range): BP systolic 96–120; BP diastolic 55–74; PULSE 59–86; TEMP 97.7–98.8
--- NOTE | 2023-03-22 06:36 | NUR ---
GAVE TYLENOL FOR GEN DISCOMFORT. REPOSITIONED. MAINTAINING FLUID RESTRICTION.
--- NOTE | 2023-03-22 07:30 | NUR ---
PATIENT IS A&O. SITTING UP IN BED WITH BREAKFAST TRAY. PATIENT CALLED OUT TWICE FOR ICE AND HAD JUICE & MILK ON HER BREAKFAST TRAY. PATIENT IS ALREADY AT 580ML OF FLUIDS THIS AM AND IS ON AT 1,500CC/DAY FR. PATIENT SEEMS TO HAVE DIFFICULTY STAYING WITHIN HER FLUID RESTRICTION. LEFT ABD DIALYSIS CATH INPLACE. LEFT IJ TO INT. AM MEDS GIVEN. HEAD TO TOE ASSESSMENT COMPLETE.
[2023-03-22 09:28] LABS: BASO % 0.4 % (0.0-2.0); EOS % 0.7 % (0.0-4.0); GRAN # 3.5 K/mm3 (1.4-6.5); GRAN % 77.5 % (42.2-75.2); LYMPH # 0.5 K/mm3 (1.2-3.4); LYMPH % 11.6 % (20.0-51.0); MEAN CELL VOLUME 88 fl (80.0-100.0); MEAN CORPUSCULAR HGB CONC 33 g/dl (33.0-37.0); MONO # 0.4 K/mm3 (0.1-0.6); MONO % 9.1 % (1.7-9.3); PLATELET COUNT 61 K/mm3 (130-400); RED BLOOD COUNT 2.95 M/mm3 (4.10-5.30); REDCELL DISTRIBUTION WIDTH-CV 22.3 % (11.5-14.5)
[2023-03-22 09:36] LABS: HEMOGLOBIN 8.5 g/dl (12.5-16.0); MEAN CORPUSCULAR HEMOGLOBIN 29 pg (27-31)
[2023-03-22 09:43] LABS: CALCIUM 7.7 mg/dL (8.4-10.2); CREATININE, serum 5.82 mg/dL (0.57-1.11); POTASSIUM 3.4 mmol/L (3.5-4.5)
[2023-03-22 13:00] LABS: BILIRUBIN,DIRECT 0.2 mg/dL (0.0-0.5); BILIRUBIN,TOTAL 0.4 mg/dL (0.2-1.2); TOTAL PROTEIN 5.3 gm/dL (6.2-8.1)
--- NOTE | 2023-03-22 20:30 | NUR ---
PT RESTING IN BED. WEAK VOICE. FLAT AFFECT. SEEMS DEPRESSED. PT NONCOMPLIANT WITH FLUID RESTRICTION. SEE MAR FOR MYLICON FOR GAS PAIN, SENOKOT FOR CONSTIPATION, AND BENADRYL FOR SLEEP. USES KPAD ACROSS ABD FOR COMFORT. PT COLD MOST OF THE TIME. MANUFACTURING ASSISTANT ASSISTED HER TO BSC. VERY WEAK. WOULD NOT MAKE AN EFFORT TO PERFORM ANY OF OWN CARES. BACK TO BED. CALL LIGHT IN REACH.
[2023-03-23 00:33] VITALS: BP_SYST 99
[2023-03-23 03:47] VITALS: BP 122/60; PULSE 57; TEMP 97.9
[2023-03-23 04:35] VITALS: BP_SYST 122
--- NOTE | 2023-03-23 06:21 | NUR ---
CGA TO BSC WITH WALKER. PT ABLE TO STAND WITH WALKER THIS AM INDEPENDENTLY WITH WALKER AND PIVOT TRANSFER TO BSC WITH MUCH ENCOURAGEMENT. COULD NOT GET SELF OFF BSC AND BACK IN BED WITHOUT HELP. HAD LOOSE BROWN STOOL. LAB SENT LAB. CALL LIGHT IN REACH.
[2023-03-23 07:51] VITALS: BP 104/67; PULSE 58; TEMP 97.8
[2023-03-23 08:33] LABS: BASO % 0.4 % (0.0-2.0); EOS % 0.4 % (0.0-4.0); GRAN # 3.7 K/mm3 (1.4-6.5); GRAN % 73.3 % (42.2-75.2); HEMATOCRIT 27.9 % (37.0-47.0); LYMPH # 0.7 K/mm3 (1.2-3.4); LYMPH % 13.6 % (20.0-51.0); MEAN CELL VOLUME 88 fl (80.0-100.0); MEAN CORPUSCULAR HEMOGLOBIN 28 pg (27-31); MEAN CORPUSCULAR HGB CONC 32 g/dl (33.0-37.0); MONO # 0.6 K/mm3 (0.1-0.6); MONO % 10.9 % (1.7-9.3); PLATELET COUNT 57 K/mm3 (130-400); RED BLOOD COUNT 3.17 M/mm3 (4.10-5.30); REDCELL DISTRIBUTION WIDTH-CV 22.3 % (11.5-14.5)
[2023-03-23 08:45] VITALS: BP_SYST 104
[2023-03-23 08:53] LABS: CALCIUM 7.7 mg/dL (8.4-10.2); CREATININE, serum 5.82 mg/dL (0.57-1.11); POTASSIUM 3.9 mmol/L (3.5-4.5)
[2023-03-23] MEDS ORDERED: CORDARONE200 MG/TAB PO (09:59)
[2023-03-23] MEDS ORDERED: KEPPRA 500MG500 MG PO (10:05)
--- NOTE | 2023-03-23 10:59 | NUR ---
The patient discharged back home with family today, 03/23, with home health services for long-term/PT/ST from [facility] . CAROLYN notified and faxed orders to Yessica at [facility] . CAROLYN met with the patient and a family friend and presented and read the IM form outloud to the patient. The patient verbalized understanding and agreement to discharge today. She signed the form and CAROLYN provided her with a copy. No additional needs at this time.
--- NOTE | 2023-03-23 13:25 | NUR ---
Discharge QIM scores were reviewed by the team. Code of 6 chosen for eating was determined by team discussion to be the most usual performance for this patient during the discharge assessment period. Code of 4 chosen for toilet hygiene was determined by team discussion to be the most usual performance for this patient during the discharge assessment period. Code of 4 chosen for toilet transfer was determined by team discussion to be the most usual performance for this patient during the discharge assessment period. Code of 4 chosen for lower body dressing was determined by team discussion to be the most usual performance for this patient during the discharge assessment period. Code of 3 chosen for putting on/taking off footwear was determined by team discussion to be the most usual performance for this patient during the discharge assessment period. Code of 6 chosen for rolling left to right was determined by team discussion to be the most usual performance for this patient during the discharge assessment period. Code of 6 chosen for sit to lying was determined by team discussion to be the most usual performance for this patient during the discharge assessment period. Code of 6 chosen for lying to sitting on side of bed was determined by team discussion to be the most usual performance for this patient during the discharge assessment period. Code of 3 chosen for sit to stand was determined by team discussion to be the most usual performance for this patient during the discharge assessment period. Code of 4 chosen for chair/bed to chair transfer was determined by team discussion to be the most usual performance for this patient during the discharge assessment period. Code of 4 chosen for walk 10 feet was determined by team discussion to be the most usual performance for this patient during the discharge assessment period.--PD Len
== END 2023-03-23 10:52 | disposition home health service (06) | DRG 91 ==
PROVIDERS: Internal Medicine; Internal Medicine Nephrology; Physician Assistant; Registered Nurse; Student in an Organized Health Care Education/Training Program; Surgery; ADMIT Physical Medicine & Rehabilitation Sports Medicine
PROC: 0WHG33Z Insertion of Infusion Device into Peritoneal Cavity, Percutaneous Approach (ICD-10-PCS; principal; 2023-03-20 14:00)
DX: G72.81 Critical illness myopathy (principal); J96.01 Acute respiratory failure with hypoxia; K25.4 Chronic or unspecified gastric ulcer with hemorrhage; K29.81 Duodenitis with bleeding; G93.40 Encephalopathy, unspecified; I42.9 Cardiomyopathy, unspecified; I50.20 Unspecified systolic (congestive) heart failure; I48.92 Unspecified atrial flutter; N17.9 Acute kidney failure, unspecified; N18.5 Chronic kidney disease, stage 5; Z66 Do not resuscitate; R53.81 Other malaise; Z74.09 Other reduced mobility; R26.89 Other abnormalities of gait and mobility; G40.901 Epilepsy, unspecified, not intractable, with status epilepticus; D63.1 Anemia in chronic kidney disease; E87.5 Hyperkalemia; D64.89 Other specified anemias; M10.9 Gout, unspecified; M25.531 Pain in right wrist; Z87.891 Personal history of nicotine dependence; Z79.899 Other long term (current) drug therapy; J02.9 Acute pharyngitis, unspecified; D69.6 Thrombocytopenia, unspecified; G47.9 Sleep disorder, unspecified; R19.7 Diarrhea, unspecified; R15.9 Full incontinence of feces; Z20.822 Contact with and (suspected) exposure to COVID-19
CPT/HCPCS: A4314; A9284; A9500; C1750; J0690; J1644; J1756; J2405; J2704; J2785; J3010; J7050; J7512; Q5106